=== PATIENT | female | born 1955 | race Caucasian/White ===

== ENCOUNTER 2018-12-04 10:29 | Day surgery (SDC) | payer OTHER ==
[2018-11-30 15:06] VITALS: BMI 20.9
[2018-12-04] MEDS ORDERED: KETOROLAC TROMETHAMINE 30 MG/1 ML VIAL ONE (12:56)
[2018-12-04] MEDS ORDERED: PROPOFOL 20 ML ONE (12:56)
[2018-12-04] MEDS ORDERED: MIDAZOLAM HCL 2 MG/2 ML SINGLE DOSE VIAL ONE (12:56)
--- NOTE | 2018-12-04 13:50 | OP ---
Operative Note - Note: Operative Date: 12/04/18 Pre-Operative Diagnosis: Left renal stone Operation: Left ESWL Findings: 7 mm Left lower pole renal stone Post-Operative Diagnosis: Same as Pre-op Surgeon: Brad Garcia Estimated Blood Loss (mls): 0
[2018-12-04 16:32] VITALS: BP 118/70; PULSE 70; TEMP 97.8
--- NOTE | 2018-12-04 19:27 | OP ---
DATE OF OPERATION: 12/04/2018 PREOPERATIVE DIAGNOSIS: Left renal stone. POSTOPERATIVE DIAGNOSIS: Left renal stone. PROCEDURE: Left extracorporeal shock wave lithotripsy. ATTENDING: Mallorie Yeh MD ANESTHESIA: Fractional. DESCRIPTION OF OPERATION: The patient was brought in the operating room, placed in supine position on the operating room table. Ultrasonography and fluoroscopy were performed. A 7-mm left lower pole stone was identified. Anesthesia and preoperative antibiotics were then administered. Shock wave lithotripsy was performed. No complications were noted. The disposition of the patient was to the recovery room. MALLORIE YEH M.D. [id number]
== END 2018-12-04 15:00 | disposition home or self-care (01) ==
LOC: JOR 10:29 → JASU-SURG 10:29
PROVIDERS: ATTEND Urology
PROC: 0TF4XZZ Fragmentation in Left Kidney Pelvis, External Approach (ICD-10-PCS; principal; 2018-12-04 11:45)
DX: N20.0 Calculus of kidney (principal)